=== PATIENT | male | born 1965 ===

== ENCOUNTER 2018-03-10 12:50 | Inpatient (IN) | payer MEDICAID ==
[~2018-03-10] VITALS: Ht 185.4 cm; Wt 88.1 kg
[2018-03-10 15:11] LABS: BASOPHIL % 0.7 % (0-2); PLATELET COUNT 256 x10^3mcL (130-400); RED CELL DISTRIBUTION WIDTH 12.7 % (11.5-14.5)
[2018-03-10 15:17] LABS: CALCIUM 9.8 mg/dL (8.5-10.1); CARBON DIOXIDE 33.8 mmol/L (21-32); CHLORIDE SERUM 95 mmol/L (98-107); CREATININE SERUM 1.3 mg/dL (0.7-1.3); GFR1 > 60 mL/min; GLUCOSE SERUM 351 mg/dL (74-106); POTASSIUM SERUM 4.1 mmol/L (3.5-5.1); SODIUM SERUM 133 mmol/L (136-145)
[2018-03-10 18:17] LABS: CHOLESTEROL/HDL RATIO 3.9; MAGNESIUM 1.9 mg/dL (1.8-2.4); PHOSPHOROUS 3.2 mg/dL (2.5-4.9)
[2018-03-10 18:23] LABS: T3 TOTAL 0.91 ng/mL
[2018-03-10 18:24] LABS: FREE T4 1.36 ng/dL (0.76-1.46); FREE THYROXINE INDEX 3.2 ug/dL (1.4-4.5); T4(THYROXINE) 9.4 ug/dL (4.7-13.3)
[2018-03-10 19:15] LABS: AMPHETAMINE QUAL UR NONE DETECTED (See below)
[2018-03-10 20:46] VITALS: BP 118/76
[2018-03-11 05:15] VITALS: BP 160/93
[2018-03-11 06:21] LABS: BASOPHIL % 0.2 % (0-2); PLATELET COUNT 239 x10^3mcL (130-400); RED CELL DISTRIBUTION WIDTH 12.5 % (11.5-14.5)
[2018-03-11 06:38] VITALS: BP 139/64
[2018-03-11 06:42] LABS: CALCIUM 9.2 mg/dL (8.5-10.1); CREATININE SERUM 1.4 mg/dL (0.7-1.3)
[2018-03-11 08:00] VITALS: BP 127/81
[2018-03-11 11:24] LABS: microscopic required? NO
[2018-03-11 11:28] LABS: UA SPECIFIC GRAVITY <=1.005 (1.005-1.035); urine erythrocyte NEGATIVE (NEGATIVE)
[2018-03-11] MEDS ORDERED: ZES20 PO (11:43)
[2018-03-11 11:52] VITALS: BP 154/91
[2018-03-11 12:46] VITALS: BP 154/91
[2018-03-11 14:05] VITALS: BP 131/80
== END 2018-03-11 14:08 | disposition home or self-care (01) | DRG 420 ==
LOC: ED 12:50 → MU 19:59
PROVIDERS: Emergency Medicine; Family Medicine
DX: E11.65 Type 2 diabetes mellitus with hyperglycemia (principal); I10 Essential (primary) hypertension; Z91.14 Patient's other noncompliance with medication regimen; Z86.718 Personal history of other venous thrombosis and embolism
CPT/HCPCS: 82962; 83880; 84439; C9113; J3490; J7030; Q0092

== ENCOUNTER 2018-06-09 14:44 | Emergency (ER) | payer MEDICAID ==
[~2018-06-09] VITALS: Ht 185.4 cm; Wt 87.5 kg
[~2018-06-09 14:44] MED LIST: ZES20 PO
[2018-06-09 14:49] VITALS: Ht 185.4 cm; Wt 87.5 kg
[2018-06-09 15:37] LABS: BASOPHIL % 0.3 % (0-2); PLATELET COUNT 242 x10^3mcL (130-400); RED CELL DISTRIBUTION WIDTH 12.6 % (11.5-14.5)
[2018-06-09 15:38] LABS: CALCIUM 9.2 mg/dL (8.5-10.1); CARBON DIOXIDE 32.2 mmol/L (21-32); CHLORIDE SERUM 96 mmol/L (98-107); CREATININE SERUM 1.2 mg/dL (0.7-1.3); GFR1 > 60 mL/min; GLUCOSE SERUM 424 mg/dL (74-106); POTASSIUM SERUM 3.9 mmol/L (3.5-5.1); SODIUM SERUM 132 mmol/L (136-145)
[2018-06-09 15:50] LABS: ALBUMIN 3.5 g/dL (3.4-5.0); ALKALINE PHOSPHATASE 75 U/L (46-116); ALT/SGPT 17 U/L (16-63); AMYLASE 44 U/L (25-115); AST/SGOT 10 U/L (15-37); BILIRUBIN TOTAL 0.49 mg/dL (0.20-1.00); CHOLESTEROL 148 mg/dL (<200); HDL CHOLESTEROL 52 mg/dL (40-60); LIPASE 287 IU/L (73-393); MAGNESIUM 1.5 mg/dL (1.8-2.4); TOTAL PROTEIN, SERUM 7.8 g/dL (6.4-8.2)
[2018-06-09 16:06] LABS: microscopic required? NO
[2018-06-09 16:15] LABS: UA SPECIFIC GRAVITY <=1.005 (1.005-1.035); urine erythrocyte NEGATIVE (NEGATIVE)
[2018-06-09 16:25] LABS: AMPHETAMINE QUAL UR NONE DETECTED (See below)
[2018-06-09 20:43] VITALS: BP 140/80
== END 2018-06-09 20:44 | disposition left against medical advice (07) ==
LOC: ED 14:44 → DU 19:38 → EDBEDREQ 19:40
PROVIDERS: Emergency Medicine; Internal Medicine
PROC: 3E033VG Introduction of Insulin into Peripheral Vein, Percutaneous Approach (ICD-10-PCS; principal; 2018-06-09)
PROC: 3E033GC Introduction of Other Therapeutic Substance into Peripheral Vein, Percutaneous Approach (ICD-10-PCS; 2018-06-09)
PROC: BW28ZZZ Computerized Tomography (CT Scan) of Head (ICD-10-PCS; 2018-06-09)
DX: E11.65 Type 2 diabetes mellitus with hyperglycemia (principal); I10 Essential (primary) hypertension; I67.4 Hypertensive encephalopathy; R32 Unspecified urinary incontinence; B37.42 Candidal balanitis; R60.9 Edema, unspecified
CPT/HCPCS: 36600; 82962; J1940; Q0092